=== PATIENT | male | born 1935 | race Caucasian/White ===

== ENCOUNTER 2023-06-25 06:56 | Day surgery (SDC) | payer OTHER ==
[2023-06-25] VITALS (15 sets, daily range): BP systolic 125–183; BP diastolic 69–110; PULSE 53–110; RESP 15–21; TEMP 97.7; O2SAT 93–96
[~2023-06-25] VITALS: Ht 180.3 cm; Wt 74.4 kg
[2023-06-25] MEDS ORDERED: nitroGLYCERIN 0.4mg SUBLingual tab SL PRN ×2 (07:25→12:15)
[2023-06-25 07:44] LABS: BASOPHILS # (AUTO) 0.1 X10'3 (0-0.2); EOSINOPHILS # (AUTO) 0.7 X10'3 (0-0.9); EOSINOPHILS % (AUTO) 9.9 % (0-6); HEMATOCRIT 41.8 % (42.0-52.0); HEMOGLOBIN 13.6 g/dl (14.0-17.9); LYMPHOCYTES # (AUTO) 0.9 X10'3 (1.1-4.8); LYMPHOCYTES % (AUTO) 13.3 % (21-51); MEAN CORPUSCULAR HEMOGLOBIN 28.5 PG (27.0-31.0); MEAN CORPUSCULAR HGB CONC 32.4 g/dL (33.0-36.5); MEAN CORPUSCULAR VOLUME 87.8 FL (78-98); MEAN PLATELET VOLUME 8.4 FL (7.4-10.4); MONOCYTES # (AUTO) 0.6 X10'3 (0-0.9); MONOCYTES % (AUTO) 9.2 % (2-12); NEUTROPHILS # (AUTO) 4.5 X10'3 (1.8-7.7); NEUTROPHILS % (AUTO) 66.6 % (42-75); PLATELET COUNT 260 X10'3 (140-440); RED BLOOD COUNT 4.76 X10'6 (4.70-6.10); RED CELL DISTRIBUTION WIDTH 14.4 % (11.5-14.5); WHITE BLOOD COUNT 6.7 X10'3 (4.5-11.0)
[2023-06-25 08:04] LABS: PROTHROMBIN TIME 10.4 SECONDS (9.0-12.0)
[2023-06-25 08:19] LABS: ANION GAP 13 (8-16); BLOOD UREA NITROGEN 29 MG/DL (7-18); BUN/CREATININE RATIO 13.7 (10.0-20.0); CHLORIDE 101 MMOL/L (99-107); CREATININE 2.12 MG/DL (0.60-1.10); GLUCOSE 107 MG/DL (70-104); POTASSIUM 3.9 MMOL/L (3.5-5.1); PRO BRAIN NATRIURETIC PEPTIDE 12273 PG/ML (0-450); SODIUM 140 MMOL/L (135-145); TOTAL CARBON DIOXIDE 25.7 MMOL/L (24-32); eCRCL 26 ML/MIN; eGFR 30 ML/MIN
[2023-06-25] MEDS ORDERED: FENO134C22 PO (09:02)
[2023-06-25] MEDS ORDERED: ALFU10TA10 PO (09:02)
[2023-06-25] MEDS ORDERED: VITE1000C PO (09:02)
[2023-06-25] MEDS ORDERED: DUTA0.5C36 PO (09:02)
[2023-06-25] MEDS ORDERED: FEXO1TAB8 PO (09:02)
[2023-06-25] MEDS ORDERED: DAPA10TA PO (09:02)
[2023-06-25] MEDS ORDERED: LEVO50TA8 PO (09:02)
[2023-06-25] MEDS ORDERED: DILT120C19 PO (09:02)
[2023-06-25] MEDS ORDERED: MULT-1085 PO (09:02)
[2023-06-25] MEDS ORDERED: VITD400T PO (09:02)
[2023-06-25] MEDS ORDERED: DAPA10TA7 PO (09:02)
[2023-06-25] MEDS ORDERED: ASCO100031 PO (09:02)
[2023-06-25] MEDS: LORazepam 0.5 MG tablet PO PRN (09:12)
[2023-06-25] MEDS: normal saline 1,000 ML IV SCH (09:12)
[2023-06-25] MEDS: diphenhydrAMINE 25mg capsule PO PRN (09:13)
[2023-06-25] MEDS ORDERED: midazolam 1 mg/ML 2ml injection ONE (10:36)
[2023-06-25] MEDS ORDERED: fentaNYL/PF 50MCG/1 ML 2ML syringe ONE (10:36)
[2023-06-25] MEDS ORDERED: LIDOcaine 1% 30ml preserv. free vial ONE (10:36)
[2023-06-25] MEDS ORDERED: iohexol 350 MG/ML 50ML vial IV ONE (10:36)
[2023-06-25] MEDS ORDERED: iohexol 350MG/ML 100ml bottle IV ONE (10:37)
[2023-06-25] MEDS ORDERED: hydrALAZINE 20mg/ml inj. IV ONE (11:32)
[2023-06-25] MEDS ORDERED: ondansetron/PF 4mg/2ml inj IV PRN (12:10)
[2023-06-25] MEDS ORDERED: normal saline 1000ml 1,000 ML IV SCH (12:10)
[2023-06-25] MEDS ORDERED: HYDROcodone/acetaminophen 10/325mg tab PO PRN (12:15)
[2023-06-25] MEDS ORDERED: OXAZEpam 15mg capsule PO PRN (12:15)
[2023-06-25] MEDS ORDERED: proCHLORperazine 10 MG/2 ml inj IV PRN (12:15)
[2023-06-25] MEDS ORDERED: HYDROcodone/acetaminophen 5mg/325mg tablet PO PRN (12:15)
[2023-06-25] MEDS: hydrALAZINE 20mg/ml inj. IV ONE (15:25)
[2023-06-25] MEDS: diltiazem CD 120mg capsule (once-daily) PO ONE (15:25)
== END 2023-06-25 17:00 | disposition home or self-care (01) ==
LOC: SSTAY O 06:56
PROVIDERS: ATTEND Internal Medicine Cardiovascular Disease
DX: I25.119 Atherosclerotic heart disease of native coronary artery with unspecified angina pectoris (principal); I10 Essential (primary) hypertension; E03.9 Hypothyroidism, unspecified; E78.5 Hyperlipidemia, unspecified; I25.2 Old myocardial infarction; Z79.890 Hormone replacement therapy; Z79.899 Other long term (current) drug therapy
CPT/HCPCS: 36415; 71046; 80048; 83880; 84484; 85025; 85610; 93005; 93459; 99152; J0360; J1644; J2250; J3010; J3490; J7030; Q0163; Q9967; 99153; A6258; C1760